=== PATIENT | female | born 1985 | race Caucasian/White ===

== ENCOUNTER 2020-08-17 13:23 | Emergency (ER) | payer MEDICAID, SELFPAY ==
[2020-08-17 13:25] VITALS: BP 175/87; PULSE 97; RESP 16; TEMP 36.6; O2SAT 98; BMI 29.2
--- NOTE | 2020-08-17 13:29 | XR_ITS ---
PROCEDURE: XR KNEE RT 3V CLINICAL INDICATION: FALL ON ICE Status post fall onto ice 5 days ago, right anterior knee pain COMPARISON: No exams were available for comparison FINDINGS: There is no fracture or dislocation or significant degenerative change. There is a small joint space effusion. IMPRESSION: Small joint space effusion. No fracture. Dictated by: Gwendolyn Sands MD 08/17/2020 14:28 Gwendolyn Sands MD in [place] 08/17/2020 14:28
--- NOTE | 2020-08-17 14:09 | HMH.EDUTC ---
[facility] [place] Disposition Clinical Impression: Effusion, left knee Contusion of right knee Qualifiers: Encounter type: initial encounter Qualified Code(s): S80.01XA - Contusion of right knee, initial encounter Knee sprain Qualifiers: Encounter type: initial encounter Involved ligament of knee: unspecified ligament Laterality: right Qualified Code(s): S83.91XA - Sprain of unspecified site of right knee, initial encounter Disposition: Home, Self-Care Condition on Discharge: Good Instructions: DI for Knee Effusion, How to Use a Knee Immobilizer Additional Instructions: Rest the extremity, apply ice for 15 minutes as tolerated three or four times per day, Elevate the extremity as tolerated while you are resting. Take ibuprofen for pain. I sent in a prescription to your pharmacy. Follow up with Dr. Choi (orthopedics). Sometimes there can be fractures that don't show up well on the first set of x-rays. So, you should follow up if you continue to have symptoms. I put in a referral but you need to call his office and schedule an appointment. Follow up with your regular doctor. GO TO THE ER FOR ANY WORSENING SYMPTOMS Prescriptions: Ibuprofen [Ibuprofen 600mg Tablet] 600 mg PO Q6HP PRN #30 tab PRN Reason: Mild Pain Transmission Status: Received by [id number] Referrals: Emery Gonzalez MD [Primary Care Provider] - Son Choi MD [Staff Physician] - Time of Disposition: 14:31 Medical Decision Making - Medical Records Medical records reviewed: No: I reviewed the patient's medical records. - Srinath Inquiry Pt receiving controlled substance: No Vital Signs: 08/17/20 13:25 08/17/20 14:47 Temperature 97.9 F 97.9 F Temperature Source Oral Oral Pulse Rate 87 Pulse Rate [Right] 97 H Respiratory Rate 16 16 Blood Pressure 170/84 H Blood Pressure [Right Arm] 175/87 H Blood Pressure Mean [Right Arm] 116 Blood Pressure Source Automatic Cuff Blood Pressure Source [Right Arm] Automatic Cuff Blood Pressure Position Sitting Blood Pressure Position [Right Arm] Sitting 02 Sat by Pulse Oximetry 98 Oxygen Delivery Method Room Air Room Air [facility] [place] HPI - General Stated complaint: ao 06/10 injury to Rt knee Time Seen by Provider: 08/17/20 13:30 Mode of Arrival: Ambulatory Source of Information: Patient Limitations: No Limitations Description of Symptoms (Recalled from Triage Doc. by RN): PT advises she fell on ice friday and is c/o right knee pain HEENT Symptoms (Recalled from RN notes): No Resp Symptoms (Recalled from RN notes): No Skin Symptoms (Recalled from RN notes): No MS Symptoms (Recalled from RN notes): Yes (right knee pain) Functional Status (Recalled from RN notes): na - History of Present Illness Provider Complaint: She states that she fell 1 week ago and came down on her right knee. Since then she has had left knee pain and instability. She tried to let it get better on its own, but it's still hurting. - Related Data Previous Rx's Medication Instructions Recorded amoxicillin 500 mg capsule 500 mg PO Q12H 10 Days #20 cap 09/01/18 Ibuprofen [Ibuprofen 600mg 600 mg PO Q6HP PRN #30 tab 08/17/20 Tablet] Allergies Allergy/AdvReac Type Severity Reaction Status Date / Time erythromycin base Allergy Mild Verified 09/01/18 11:39 [ERYTHROMYCIN BASE] nifedipine [NIFEDIPINE] Allergy Mild Verified 09/01/18 11:39 - Worker's Comp Is this a Worker's Comp case?: No [facility] History - Hepatitis A Screen Drug use history?: No High risk sexual behaviors?: No History of sexually transmitted infection?: No Currently employed?: No Childcare worker?: No Do you have indoor plumbing?: Yes Do you have electricity?: Yes Attestation statement:: This patient has been screened for Hepatitis A risk factors. I have reviewed the patient's past medical history: Yes Laterality Cases: Bilateral: Other Other Surgeries: Yes: - Social History Smoking Status: Never s
[2020-08-17 14:47] VITALS: BP 170/84; PULSE 87; RESP 16; TEMP 36.6; O2SAT 98
== END 2020-08-17 14:53 | disposition home or self-care (01) ==
PROVIDERS: Emergency Provider Nurse Practitioner Family; PCP Family Medicine
DX: S80.01XA Contusion of right knee, initial encounter (principal); S83.91XA Sprain of unspecified site of right knee, initial encounter; W00.0XXA Fall on same level due to ice and snow, initial encounter; Y92.89 Other specified places as the place of occurrence of the external cause; Z88.1 Allergy status to other antibiotic agents
CPT/HCPCS: 29505; 73562; 99202; G0463

== ENCOUNTER 2020-10-30 09:22 | Emergency (ER) | payer MEDICAID, SELFPAY ==
[2020-10-30 09:33] VITALS: BP 157/114; PULSE 70; RESP 14; TEMP 36.7; O2SAT 99
--- NOTE | 2020-10-30 09:44 | XR_ITS ---
PROCEDURE: XR ANKLE RT MIN 3V CLINICAL INDICATION: rolled ankle COMPARISON: No exams were available for comparison FINDINGS: There is a well-circumscribed transverse lucency through the lateral malleolus which may be due to an old fracture or ununited ossification center. There is mild soft tissue swelling laterally. No acute fracture or dislocation is apparent. The joint spaces are well-preserved. No significant degenerative/arthritic changes. No erosive changes evident. Other findings:None. IMPRESSION: No acute finding. Old fracture versus ununited ossification center at the lateral malleolus Dictated by: Eder Fitzpatrick MD 10/30/2020 10:54 Eder Fitzpatrick MD in [place] 10/30/2020 10:54
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
[2020-10-30 10:57] VITALS: BP 150/110; PULSE 73; RESP 14; TEMP 36.6
== END 2020-10-30 10:56 | disposition home or self-care (01) ==
PROVIDERS: Emergency Provider Nurse Practitioner Family; PCP Family Medicine
DX: S82.401A Unspecified fracture of shaft of right fibula, initial encounter for closed fracture (principal); X50.1XXA Overexertion from prolonged static or awkward postures, initial encounter; Y92.89 Other specified places as the place of occurrence of the external cause
CPT/HCPCS: 29515; 73610; 99202; G0463

== ENCOUNTER → 2020-11-07 09:02 | Outpatient (CLI) | payer MEDICAID, SELFPAY ==
--- NOTE | 2020-11-07 09:05 | XR_ITS ---
PROCEDURE: XR ANKLE WT BEARING RT MIN 3V CLINICAL INDICATION: Fracture follow up COMPARISON: CR XR ANKLE RT MIN 3V from 10/30/2020 FINDINGS: Old fracture of the lateral malleolus is noted. No acute fractures or dislocations. The ankle mortise is congruent and the lateral clear space is preserved. Bone density is normal. No significant soft tissue swelling noted. IMPRESSION: Old fracture of the lateral malleolus. No interval change compared to prior study. Dictated by: Rosemarie Choi 11/07/2020 11:09 Rosemarie Choi in [place] 11/07/2020 11:09
== END ==
PROVIDERS: PCP Family Medicine; Visit Provider Podiatrist
DX: T14.8XXA Other injury of unspecified body region, initial encounter (principal)
CPT/HCPCS: 73610

== ENCOUNTER 2020-11-12 01:04 | Emergency (ER) | payer MEDICAID, SELFPAY ==
[2020-11-12 01:04] VITALS: BP 157/119; PULSE 115; RESP 16; TEMP 36.9; O2SAT 97
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
--- NOTE | 2020-11-12 01:34 | XR_ITS ---
PROCEDURE INFORMATION: Exam: XR Left Knee Exam date and time: 11/12/2020 1:34 AM Age: 35 years old Clinical indication: Injury or trauma; Fall; Blunt trauma and laceration; Patella or knee; Foreign body involvement not specified; Patient HX: Fell on concrete, lac to left knee TECHNIQUE: Imaging protocol: XR Left knee. Views: 3 views. COMPARISON: No relevant prior studies available. FINDINGS: Bones/joints: Normal. Soft tissues: Normal. No radiopaque foreign bodies identified. IMPRESSION: No acute findings.
[2020-11-12 02:51] VITALS: BP 147/75; PULSE 100; RESP 16; TEMP 36.9; O2SAT 97
== END 2020-11-12 02:52 | disposition home or self-care (01) ==
PROVIDERS: Emergency Provider Emergency Medicine; PCP Family Medicine
DX: S81.012A Laceration without foreign body, left knee, initial encounter (principal); S80.02XA Contusion of left knee, initial encounter; W01.0XXA Fall on same level from slipping, tripping and stumbling without subsequent striking against object, initial encounter; Y92.014 Private driveway to single-family (private) house as the place of occurrence of the external cause
CPT/HCPCS: 12002; 73562; 99283

== ENCOUNTER 2020-11-23 11:29 | Emergency (ER) | payer MEDICAID, SELFPAY ==
[2020-11-23 11:45] VITALS: BMI 26.6
[2020-11-23 11:46] VITALS: BP 122/87; PULSE 79; RESP 16; TEMP 36.8
== END 2020-11-23 11:48 | disposition home or self-care (01) ==
PROVIDERS: Emergency Provider Nurse Practitioner Family; PCP Family Medicine
DX: S81.012A Laceration without foreign body, left knee, initial encounter (principal)

== ENCOUNTER 2021-02-28 10:39 | Emergency (ER) | payer MEDICAID, SELFPAY ==
[2021-02-28 13:00] VITALS: PULSE 86; RESP 16; TEMP 37; O2SAT 99; BMI 31.5
[2021-02-28 13:05] VITALS: BP 149/89; PULSE 86; RESP 16; TEMP 37
--- NOTE | 2021-02-28 13:44 | HMH.EDUTC ---
[facility] [place] Clinical Impression: Otitis media Qualifiers: Otitis media type: unspecified Chronicity: acute Qualified Code(s): H66.90 - Otitis media, unspecified, unspecified ear Disposition: Home, Self-Care Condition on Discharge: Good Instructions: Middle Ear Infection, Preventing the Spread of Coronavirus Discharge Instructions Additional Instructions: Drink plenty of fluids. Take tylenol or ibuprofen for pain or fever. Take the medications as directed. Follow up with your regular doctor. GO TO THE ER FOR ANY WORSENING SYMPTOMS Quarantine until you know the results of your covid-19 test. If it is positive, the health department should call you and give you further instructions about your length of Quarantine and other things. Notify your school or workplace of your results and follow their instructions regarding return to work/school. Prescriptions: Brompheniramine/Pseudoephed/Dm [Bromfed Dm Cough Syrup] 5 ml PO Q6HP PRN #240 ml PRN Reason: Cough Transmission Status: Received by [facility] Amoxicillin/Potassium Clav [Augmentin 875-125 Tablet] 1 tab PO Q12H 10 Days #20 tab Transmission Status: Received by [facility] methylPREDNISolone [Medrol] 4 mg PO DIRECTED 6 Days #21 packet Transmission Status: Received by [facility] Referrals: Emery Gonzalez MD [Primary Care Provider] - Forms: Work/School Release Time of Disposition: 13:47 Medical Decision Making - Medical Records Medical records reviewed: No: I reviewed the patient's medical records. - Srinath Inquiry Pt receiving controlled substance: No Vital Signs: 02/28/21 13:00 02/28/21 13:05 Temperature 98.6 F 98.6 F Temperature Source Oral Pulse Rate 86 Pulse Rate [Left] 86 Respiratory Rate 16 16 Blood Pressure 149/89 H 02 Sat by Pulse Oximetry 99 [facility] [place] - General Stated complaint: Ear ache;headache; congestion Time Seen by Provider: 02/28/21 13:25 Mode of Arrival: Ambulatory Source of Information: Patient Limitations: No Limitations Description of Symptoms (Recalled from Triage Doc. by RN): PT C/O L EAR ACHE AND DIXXINESS X5 DAYS. HEENT Symptoms (Recalled from RN notes): Yes (L EAR ACHE AND DIZZINESS) Resp Symptoms (Recalled from RN notes): No Skin Symptoms (Recalled from RN notes): No MS Symptoms (Recalled from RN notes): No Functional Status (Recalled from RN notes): NA - History of Present Illness Provider Complaint: She c/o left ear pain, left fullness, and decreased hearing in her left ear for the past 2 days. She has had some sinus congestion too. She normally gets a sinus infection this time of year, but her ear pain is something new. She denies any known exposure to covid. - Related Data Previous Rx's Medication Instructions Recorded meloxicam 7.5 mg tablet 7.5 mg PO ONCE #30 tab 11/07/20 methylprednisolone 4 mg tablets in 4 mg PO PER PKG DIR #21 tab 11/07/20 a dose pack cephALEXin [cephALEXin 500mg 500 mg PO TID #30 cap 11/12/20 capsule*] Amoxicillin/Potassium Clav 1 tab PO Q12H 10 Days #20 tab 02/28/21 [Augmentin 875-125 Tablet] Brompheniramine/Pseudoephed/Dm 5 ml PO Q6HP PRN #240 ml 02/28/21 [Bromfed Dm Cough Syrup] methylPREDNISolone [Medrol] 4 mg PO DIRECTED 6 Days #21 02/28/21 packet Allergies Allergy/AdvReac Type Severity Reaction Status Date / Time erythromycin base Allergy Mild Verified 11/07/20 09:43 [ERYTHROMYCIN BASE] nifedipine [NIFEDIPINE] Allergy Mild Verified 11/07/20 09:43 - Worker's Comp Is this a Worker's Comp case?: No [facility] History - Hepatitis A Screen Drug use history?: No High risk sexual behaviors?: No History of sexually transmitted infection?: No Currently employed?: No Childcare worker?: No Do you have indoor plumbing?: No Do you have electricity?: No Attestation statement:: This patient has been screened for Hepatitis A risk factors. I have reviewed the patient's past medical history: Yes Me
== END 2021-02-28 14:01 | disposition home or self-care (01) ==
PROVIDERS: Emergency Provider Nurse Practitioner Family; PCP Family Medicine
DX: H66.90 Otitis media, unspecified, unspecified ear (principal); Z88.1 Allergy status to other antibiotic agents
CPT/HCPCS: 99202; G0463; U0003

== ENCOUNTER → 2021-07-26 10:59 | Outpatient (CLI) | payer MEDICAID, SELFPAY ==
[2021-07-27 11:44] LABS: Covid-19 Nasal PCR Sendout Lex NOT DETECTED
== END ==
PROVIDERS: Visit Provider Nurse Practitioner
DX: Z20.822 Contact with and (suspected) exposure to COVID-19 (principal)
CPT/HCPCS: C9803; U0004; U0005

== ENCOUNTER 2021-07-31 10:07 | Emergency (ER) | payer MEDICAID, SELFPAY ==
[2021-07-31 11:25] VITALS: BP 0/0; PULSE 0; RESP 0; TEMP -17.7; TEMP 0
== END 2021-07-31 11:30 | disposition left against medical advice (07) ==
LOC: UTC 10:11
PROVIDERS: Emergency Provider Nurse Practitioner; PCP Family Medicine
DX: Z53.21 Procedure and treatment not carried out due to patient leaving prior to being seen by health care provider (principal)

== ENCOUNTER → 2021-08-02 13:36 | Outpatient (CLI) | payer MEDICAID, SELFPAY | PROVIDERS: PCP Family Medicine; Visit Provider Nurse Practitioner | DX: Z20.822 Contact with and (suspected) exposure to COVID-19 (principal) | CPT/HCPCS: C9803; U0003; U0005 ==

== ENCOUNTER 2022-04-21 10:58 | Emergency (ER) | payer MEDICAID, SELFPAY ==
--- NOTE | 2022-04-21 11:02 | EXP.UTC ---
Discharge Plan Disposition Patient Disposition: Home, Self-Care Condition: Good Prescriptions Prescriptions: New amoxicillin [amoxicillin] 500 mg tablet 500 mg PO TID 10 Days Qty: 30 0RF methylprednisolone 4 mg Tablets,Dose Pack 4 mg PO DIRECTED Qty: 21 0RF No Action methylprednisolone 4 mg tablets,dose pack 4 mg PO PER PKG DIR Qty: 21 0RF meloxicam [Mobic] 7.5 mg tablet 7.5 mg PO ONCE Qty: 30 2RF cephalexin 500 MG capsule 500 mg PO TID Qty: 30 0RF methylprednisolone 4 MG tablets,dose pack 4 mg PO DIRECTED 6 Days Qty: 21 0RF [id number]-tuhlfsxvv-SF 118 ML syrup 5 ml PO Q6HP PRN (Reason: Cough) Qty: 240 0RF amoxicillin-pot clavulanate 1 EACH tablet 1 tab PO Q12H 10 Days Qty: 20 0RF Referrals Follow up/Referrals: Emery Gonzalez MD [Primary Care Provider] - See instructions Activity Restrictions/Add. Instructions Additional Instructions/Restrictions: Drink plenty of fluids. Take tylenol or ibuprofen for pain or fever. Take the medications as directed. Follow up with your regular doctor. GO TO THE ER FOR ANY WORSENING SYMPTOMS Clinical Impressions Clinical Impression: Otitis media Stand Alone Forms Stand Alone Forms: Work/School Release Instructions Patient Instructions: Middle Ear Infection Discharge ED Provider: Zachary Paredes [facility] General Stated complaint: ear ache, PAULINO Time Seen by Provider: 04/21/22 11:02 History of Present Illness Provider Complaint: She c/o left ear pain and sore throat for the past 3 days. Related Data Previous Rx's Medication Instructions Recorded meloxicam 7.5 mg tablet (Mobic) 7.5 mg PO ONCE pain #30 tabs 11/07/20 methylprednisolone 4 mg tablets in 4 mg PO PER PKG DIR Pain, swelling 11/07/20 a dose pack #21 tabs cephalexin 500 mg capsule 500 mg PO TID #30 caps 11/12/20 amoxicillin 875 mg-potassium 1 tab PO Q12H 10 days #20 tabs 02/28/21 clavulanate 125 mg tablet [id number]-xxsrylhxdjtwwfa-GP 5 ml PO Q6HP PRN Cough #240 mL 02/28/21 2 mg-30 mg-10 mg/5 mL oral syrup methylprednisolone 4 mg tablets in 4 mg PO DIRECTED 6 days #21 02/28/21 a dose pack packets amoxicillin 500 mg tablet 500 mg PO TID 10 days #30 tabs 04/21/22 methylprednisolone 4 mg tablets in 4 mg PO DIRECTED #21 tabs 04/21/22 a dose pack Allergies Allergy/AdvReac Type Severity Reaction Status Date / Time erythromycin base Allergy Mild Verified 04/21/22 11:14 [ERYTHROMYCIN BASE] nifedipine [NIFEDIPINE] Allergy Mild Verified 04/21/22 11:14 [facility] Social History Smoking Status: Current every day smoker alcohol intake: current current occupational status: employed Travel in the last 8 weeks: None household members: family housing: house ROS Obtained: Yes All systems reviewed & no additional complaints except as documented Constitutional Constitutional: Denies chills, Reports fever(s) and Reports poor appetite Eyes Eyes: Denies eye discharge ENT Ears, Nose, Mouth, and Throat: Denies ear discharge, Reports otalgia, Denies hearing loss, Denies sinus pain and Reports sore throat Cardiovascular Cardiovascular: Denies chest pain and Denies dyspnea Respiratory Respiratory: Denies chest congestion, Reports cough and Denies dyspnea Gastrointestinal Gastrointestingal: Denies abdominal pain, diarrhea, nausea or vomiting Musculoskeletal Musculoskeletal: Denies arthralgias Integumentary/Breasts Skin/Breast: Denies rash Physical Exam General General appearance: alert and in no apparent distress Head Head exam: atraumatic, normocephalic and normal inspection Eye Eye exam: Present normal appearance; Absent PERRL or EOMI ENT ENT exam: Present mucous membranes moist and normal external ear exam Expanded ENT Exam TM/Canal exam: Bilateral TM: erythema, bulging and effusion Nose exam: Absent sinus tenderness Nasal speculum exam: Bilateral:
[2022-04-21 11:12] VITALS: BP 159/111; PULSE 82; RESP 16; TEMP 36.7; O2SAT 99; BMI 25.7
[2022-04-21 12:08] VITALS: BP 159/111; PULSE 82; RESP 16; TEMP 36.7
== END 2022-04-21 12:11 | disposition home or self-care (01) ==
PROVIDERS: Emergency Provider Nurse Practitioner Family; PCP Family Medicine
DX: H66.90 Otitis media, unspecified, unspecified ear (principal)
CPT/HCPCS: 99212; G0463